=== PATIENT | female | born 1955 | race Caucasian/White ===

== ENCOUNTER → 2017-02-12 | Day surgery (SDC) | payer OTHER ==
[~2017-02-12] MED LIST: BUPIVACAINE HCL 0.5% INJ 30 ML VIAL INJ ONE; CEFAZOLIN SOD 1 GM/NS 50ML 50 ML IV ONE; DEXAMETHASONE SOD PHOS INJ 4 MG/ML VIAL ONE; FENTANYL CITRATE/PF 100MCG/2 ML INJ ONE; LIDOCAINE HCL 2% LOCAL INJ 5 ML SDV VIAL INJ ONE; MIDAZOLAM HCL 2 MG/2 ML VIAL ONE; MUPIROCIN 2% OINT 22 GM TUBE ONE; ONDANSETRON HCL INJ 2 MG/ML VIAL ONE; PREMARIN0.625 MG PO; PROPOFOL IV EMULSION 10 MG/ML 20 ML VIAL ONE; SEVOFLURANE INHAL SOLN 250 ML PEN BTL ONE; SIMVASTATIN20 MG PO; VITAMIN D350000 UNIT PO
--- NOTE | 2017-02-12 16:37 | Operative Report ---
DATE OF PROCEDURE: February 12, 2017 PREOPERATIVE DIAGNOSIS: Right wrist volar ganglion cyst. POSTOPERATIVE DIAGNOSIS: Right wrist volar ganglion cyst. OPERATION PERFORMED: Excision, right wrist volar ganglion cyst. ANESTHESIA: General. INDICATIONS: The patient is a 61-year-old right hand dominant female who has a cyst located directly over the FCR tendon at the level of the distal wrist. Risks, benefits and alternatives were discussed with the patient and she is prepared to undergo the procedure as outlined. DETAILS OF PROCEDURE: Patient was marked preoperatively in the holding area. She was brought to the operating theater and after the induction of adequate general anesthesia she was prepped and draped in a supine position. A time out was performed. The procedure was begun by marking out a longitudinal incision and then curving it up over the thenar eminence. The right upper extremity was exsanguinated and a tourniquet was inflated to a pressure of 250 mmHg. Incision was made through the skin and subcutaneous tissues. Venous tributaries were controlled with bipolar cautery. The cyst was immediately identified in the subcutaneous plane and using careful dissection it was traced underneath the FCR tendon to the level of the CMC joint. The cyst and its communicating stalk to the joint capsule were excised and then sent for permanent pathologic examination. The rent in the joint capsule was then fulgurated using the bipolar cautery. The wound was irrigated with bacteriostatic saline and FCR tendon was allowed to retract to its cherokee position and the wound was closed with 5-0 nylon in interrupted horizontal mattress fashion. A Marcaine field block was performed at the operative site. Tourniquet was deflated. All the fingers pinked up nicely and a sterile bulking conforming bandage was applied to the hand and wrist. Patient tolerated the procedure well and was brought to recovery room in satisfactory condition and discharged with a postoperative instruction sheet as well as a followup appointment. Job#: [id number]
== END | disposition home or self-care (01) ==
LOC: OR 06:39
PROVIDERS: ATTEND Plastic Surgery
DX: M67.431 Ganglion, right wrist (principal); Z01.810 Encounter for preprocedural cardiovascular examination
CPT/HCPCS: 25111; 88304; 93005; J1100; J2001; J2250; J2405